=== PATIENT | male | born 1980 | race Caucasian/White ===

== ENCOUNTER 2017-12-15 06:19 | Emergency (ER) | payer OTHER ==
[~2017-12-15] VITALS: Ht 185.4 cm; Wt 120.5 kg
[~2017-12-15 06:19] MED LIST: NOHOMEMEDS
[2017-12-15 06:59] LABS: BASOPHIL (%) 0.6 % (0-1); EOSINOPHIL (%) 3.1 % (0-5); EOSINOPHIL COUNT 0.2 K/uL (0-0.3); HEMATOCRIT 34.5 % (38.0-50.0); HEMOGLOBIN 12.3 G/DL (12.5-16.6); IMMATURE GRANULOCYTE (%) 0.4 % (0.0-0.7); LYMPHOCYTE COUNT 1.4 K/uL (1.0-2.8); MCH 29.4 PG (29.0-34.0); MCHC 35.7 G/DL (30.0-36.0); MCV 82.5 FL (86-99); MONOCYTE (%) 7.2 % (3-12); MONOCYTE COUNT 0.4 K/uL (0-0.8); NEUTROPHIL (%) 60.7 % (45-76); NEUTROPHIL COUNT 3.1 K/uL (1.8-6.4); PLATELET COUNT 191 K/uL (156-360); RBC DIS.WIDTH-CV 12.9 % (11.8-14.6); RBC DIS.WIDTH-SD 38.5 % (39-53); RED BLOOD COUNT 4.18 M/uL (4.00-5.50); WHITE BLOOD COUNT 5.2 K/uL (4.1-10.2)
[2017-12-15 07:05] LABS: INTER. NORMALIZED RATIO 1.1
[2017-12-15 07:26] LABS: CHLORIDE 109 MEQ/L (99-109); CREATINE KINASE 152 IU/L (1-294); CREATININE 0.7 MG/DL (0.6-1.3); GFR ESTIMATE (CALCULATED) > 59 mL/min/ (58.99-99999); GLUCOSE 141 mg/dL (70-99); POTASSIUM 3.7 MEQ/L (3.7-5.4); SODIUM 139 MEQ/L (136-147); TOTAL CK 152 IU/L (1-294); UREA NITROGEN (BUN) 10 mg/dL (9-23)
[2017-12-15 07:57] LABS: CK-MB 2.8 ng/mL (0.0-4.9); CKMB RELATIVE INDEX 1.8 (0.0-3.9)
[2017-12-15] MEDS ORDERED: LASIX20 MG PO (09:17)
[2017-12-15] MEDS ORDERED: K-DUR20 MEQ PO (09:18)
[2017-12-15 09:36] VITALS: BP 146/94
== END 2017-12-15 09:36 | disposition home or self-care (01) ==
LOC: EME 06:19
PROVIDERS: Emergency Medicine
DX: M79.604 Pain in right leg (principal); R60.0 Localized edema
CPT/HCPCS: 80048; 82550; 82553; 85025; 85610; 93971; 99281; 99284